=== PATIENT | female | born 1945 | race Two or more races ===

== ENCOUNTER 2023-06-27 08:24 | Emergency (ER) | payer OTHER ==
[~2023-06-27] VITALS: Ht 154.9 cm; Wt 51.7 kg
[2023-06-27] MEDS ORDERED: ROSUVASTATIN CA40 MG PO (08:38)
[2023-06-27] MEDS ORDERED: DICLOFENAC SODI75 MG PO (08:56)
== END 2023-06-27 09:01 | disposition home or self-care (01) ==
LOC: ER 08:24
DX: M77.8 Other enthesopathies, not elsewhere classified (principal)
CPT/HCPCS: 96372; 99283; J1885; J3301

== ENCOUNTER 2023-09-09 08:04 | Outpatient (CLI) | payer OTHER ==
[~2023-09-09 08:04] MED LIST: DICLOFENAC SODI75 MG PO; ROSUVASTATIN CA40 MG PO
== END 2023-09-09 08:10 | disposition home or self-care (01) ==
LOC: SONOGRAMA 08:04
PROVIDERS: ATTEND Physical Medicine & Rehabilitation
DX: M25.511 Pain in right shoulder (principal)

== ENCOUNTER 2025-10-06 09:28 | Outpatient (CLI) | payer OTHER | END 2025-10-06 09:33 | disposition home or self-care (01) | LOC: SONOGRAMA 09:28 | DX: M25.512 Pain in left shoulder (principal) ==